=== PATIENT | female | born 1960 | race African-American/Black ===

== ENCOUNTER → 2016-06-18 | Outpatient (CLI) | payer OTHER ==
[~2016-06-18] MED LIST: B-COCAP9 PO; BAYETES; BIOTCAP PO; BLOOD GLUCOSE T1 TES; CALC1TAB53 PO; CETI10CA3 PO; COQ1200C3 PO; CYCL-36 PO; CYCL1TAB29 PO; ESTRTAB11 PO; FISH120014 PO; FISHCAP4 PO; FLUT1SPR22; FLUT1SPR9; GABA300C3 PO; GABA300C5 PO; GABA400C5 PO; GABA800T PO; GLUC1TAB24; GLUCTAB PO; GLUCTES27 XX; IBUP800T23 PO; KETO60IN6 IM; LIPI40TA PO; MEDR4PAK PO; MELO-1 PO; METF500T PO; METH125I2 IM; RED600TA PO; ZYRT10TA12 PO; [UNRECOGNIZED DRUG - CODE] PO
--- NOTE | 2016-06-18 14:04 | RADRPT ---
EXAM DATE/TIME: 06/18/2016 13:26 [facility] COMPARISON: No previous studies available for comparison. INDICATIONS : Left knee pain with no known injury. MEDICAL HISTORY : Osteoarthritis. SURGICAL HISTORY : Carpal tunnel syndrome. right elbow. ENCOUNTER: Initial ACUITY: >1 year PAIN SCORE: 8/10 LOCATION: Left knee FINDINGS: Four view examination of the left knee demonstrates moderate to severe osteoarthritis of the medial j oint. There is mild medial subluxation of the distal femur on the proximal tibia. Small knee joint ef fusion. CONCLUSION: 1. Severe osteoarthritis of the left knee with small joint effusion. No fracture. Roque Alston MD on June 18, 2016 at 14:00 Board Certified Radiologist. This report was verified electronically.
== END ==
LOC: HRAD 13:05
PROVIDERS: ATTEND Family Medicine
DX: M25.562 Pain in left knee (principal)
CPT/HCPCS: 73564

== ENCOUNTER 2016-08-11 13:31 | Emergency (ER) | payer OTHER ==
[~2016-08-11] VITALS: Ht 172.7 cm; Wt 135.7 kg
[~2016-08-11 13:31] MED LIST changes: -BAYETES; -BIOTCAP PO; -CETI10CA3 PO; -COQ1200C3 PO; -CYCL-36 PO; -ESTRTAB11 PO; -FLUT1SPR9; -GABA300C3 PO; -GABA300C5 PO; -GABA800T PO; -GLUC1TAB24; -GLUCTAB PO; -KETO60IN6 IM; -LIPI40TA PO; -MEDR4PAK PO; -METH125I2 IM; -RED600TA PO; -[UNRECOGNIZED DRUG - CODE] PO
[2016-08-11 13:33] VITALS: BP 168/77; PULSE 84; RESP 15; TEMP 98.2; O2SAT 96
--- NOTE | 2016-08-11 13:39 | PD ---
HPI . left leg acute on chronic pain and worsening edema Chief Complaint: Pain: Acute or Chronic Time Seen by Provider: 13:39 Travel History International Travel<30 days: No Contact w/Intl Traveler<30days: No Traveled to known affect area: No History of Present Illness HPI 55-year-old female with past medical history of hypertension, diabetes, chronic knee pain with osteoarthritis, hyperlipidemia and seasonal allergies here with complaints of worsening left leg pain and being sent from physical therapy to rule out a DVT. Patient reports that she was working with a new therapist who thought her leg was somewhat swollen. Patient said she then noticed that her leg was slightly more swollen than usual. She has been experiencing a little bit more pain. Physical therapy recommended DVT rule out before proceeding with any further sessions. At time of examination patient denies any chest pain , nausea, vomiting, shortness breath, or abdominal pain. PFSH Past Medical History ?: Not Social History Tobacco Use: No Allergies-Medications (Allergen,Severity, Reaction): Coded Allergies: No Known Allergies (Unverified , 08/11/16) Reported Meds & Prescriptions Reported Meds & Active Scripts Active Meloxicam 15 Mg Tab 15 Mg PO DAILY Flexeril (Cyclobenzaprine HCl) 10 Mg Tab 10 Mg PO TID Gabapentin 400 Mg Cap 400 Cap PO TID Metformin (Metformin HCl) 500 Mg Tab 500 Mg PO DAILY With a meal Reported Blood Glucose Test Strips 1 Niecy Niecy 1 Ea .ROUTE DIRECTED Allergy Nasal [place] 24 Ho (Fluticasone Propionate (Nasal)) 50 Mcg/Act Spr Fish Oil + D3 (Fish Oil-Cholecalciferol) 1,200-1,000 Mg-Unit Cap 1,200 Cap PO DAILY Super B-Complex (B-Complex W/Biotin & Folic Acid) 1 Cap 1 Cap PO Ibuprofen 800 Mg Tab 800 Mg PO TID Review of Systems General / Constitutional: No: Fever Eyes: No: Visual changes HENT: No: Headaches Cardiovascular: No: Chest Pain or Discomfort Respiratory: No: Shortness of Breath Gastrointestinal: No: Abdominal Pain Genitourinary: No: Dysuria Musculoskeletal: Positive: Pain (left leg pain ) Skin: No Rash Neurologic: No: Weakness Psychiatric: No: Depression Endocrine: No: Polydipsia Hematologic/Lymphatic: No: Easy Bruising Physical Exam Narrative GENERAL: AAO x 3, no acute distress, Well-nourished, well-developed patient. SKIN: Warm and dry. No visible rashes or bruising. HEAD: Normocephalic and atraumatic. EYES: No scleral icterus. No injection or drainage. ENT: No nasal drainage noted. Mucous membranes pink. Airway patent. NECK: Supple, trachea midline. No JVD. CARDIOVASCULAR: Regular rate and rhythm without murmurs, gallops, or rubs. RESPIRATORY: Breath sounds equal bilaterally. No accessory muscle use. No rhonchi or rales. GASTROINTESTINAL: Abdomen soft, non-tender, nondistended. EXTREMITIES: No cyanosis or edema. Pulses palpable. BACK: Nontender without obvious deformity. No CVA tenderness. PSYCH: AAO x 3, normal affect. Data Data Last Documented VS Vital Signs Date Time Temp Pulse Resp B/P Pulse Ox O2 Delivery O2 Flow Rate FiO2 08/11/16 13:33 98.2 84 15 168/77 96 Orders Us Leg Venous Doppler (08/11/16 ) MDM Medical Decision Making Medical Screen Exam Complete: Yes Emergency Medical Condition: Yes Medical Record Reviewed: Yes (patient of Dr. Little) Differential Diagnosis Acute on chronic leg pain, chronic lower extremity edema, DVT Narrative Course 55-year-old female with past medical history of hypertension, diabetes, chronic knee pain with osteoarthritis, hyperlipidemia and seasonal allergies here with complaints of worsening left leg pain and being sent from physical therapy to rule out a DVT. Patient reports that she was working with a new therapist who thought her leg was somewhat swollen. Patient said she then noticed that her leg was slightly more swollen than usual. She has been experiencing a little bit more pain. Physical therapy recommended DVT rule out before proceeding with any further sessions. At time of examination patient denies any chest pain , nausea, vomiting, shortness breath, or abdominal pain. Patient seen and examined. Case discussed with Dr. Gallegos. Recommend venous Doppler for left lower extremity to rule out DVT. US no DVT Patient advised to follow with Dr. Little in the community clinic Patient verbalized understanding of instructions, questions were answered, and thanked me for their care. I advised them if their condition worsens, please return to the nearest emergency room for further care. Diagnosis Primary Impression: Left leg pain Patient Instructions: General Instructions Additional Instructions: Please return to emergency department if your symptoms return or worsen. Follow up with your primary care provider. Take medications as prescribed. Med/Other Pt SpecificInfo: No Change to Meds Disposition: 01 DISCHARGE HOME Condition: Stable Pamella Wallace Aug 11, 2016 13:39
--- NOTE | 2016-08-11 14:46 | RADRPT ---
EXAM DATE/TIME: 08/11/2016 14:25 [facility] COMPARISON: No previous studies available for comparison. INDICATIONS : Left leg pain and swelling. MEDICAL HISTORY : Osteoarthritis. Diabetes. Chronic knee pain. Hyperlipidemia. SURGICAL HISTORY : Tonsillectomy. section. Tubal ligation. Carpal tunnel surgery. Right elbow surgery. ENCOUNTER: Initial ACUITY: 2 day PAIN SCORE: 6/10 LOCATION: Left leg. TECHNIQUE: Venous ultrasound of the leg was performed from the inguinal ligament to the proximal calf. Real-time, color Doppler and spectral tracing, compression and augmentation techniques were us ed. FINDINGS: There is normal compressibility of the deep venous system from the inguinal region to the proximal ca lf. No echogenic clot is seen in the lumen of the common femoral, femoral, popliteal, and posterior tibial veins. There is a normal response of the venous system to proximal and distal augmentation an d respiration. CONCLUSION: No deep venous thrombosis left leg. Mick Alexandre MD on August 11, 2016 at 14:44 Board Certified Radiologist. This report was verified electronically.
--- NOTE | 2016-08-11 14:51 | PD ---
Data Data Last Documented VS Vital Signs Date Time Temp Pulse Resp B/P Pulse Ox O2 Delivery O2 Flow Rate FiO2 08/11/16 13:33 98.2 84 15 168/77 96 Orders Us Leg Venous Doppler (08/11/16 ) MDM Supervised Visit with KIRSTEN: Yes Narrative Course The history, exam, and medical decision-making in the associated mid-level provider note were completed with my assistance. I reviewed and agree with the findings presented. I attest that I had a [id number] encounter with the patient on the same day, and personally performed and documented my assessment and findings in the medical record. *My assessment and Findings: 10 year-old woman with chronic pain in the left knee and left leg swelling or worsening swelling for the past week. Physical therapy referred her in for evaluation for possible DVT. Ultrasounds negative. Continue supportive treatment. Diagnosis Primary Impression: Left leg pain Disposition: 01 DISCHARGE HOME Condition: Stable Richard Gallegos MD Aug 11, 2016 14:51
[2016-08-13] MEDS ORDERED: MEDR4PAK PO (16:36)
[2016-10-01] MEDS ORDERED: BAYETES (14:38)
[2016-10-12] MEDS ORDERED: ESTRTAB11 PO (15:33)
[2016-10-12] MEDS ORDERED: KETO60IN6 IM (16:04)
[2016-10-12] MEDS ORDERED: METH125I2 IM (16:04)
[2016-10-28] MEDS ORDERED: LIPI40TA PO (14:22)
[2016-12-01] MEDS ORDERED: GLUC1TAB24 (14:46)
[2016-12-01] MEDS ORDERED: GABA800T PO (14:50)
[2016-12-01] MEDS ORDERED: CETI10CA3 PO (15:08)
== END 2016-08-11 15:13 | disposition home or self-care (01) ==
LOC: NEPC 13:31
DX: M79.605 Pain in left leg (principal); M25.562 Pain in left knee; M79.89 Other specified soft tissue disorders; E78.5 Hyperlipidemia, unspecified; I10 Essential (primary) hypertension; E11.9 Type 2 diabetes mellitus without complications; G89.29 Other chronic pain
CPT/HCPCS: 93971

== ENCOUNTER → 2016-10-27 | Outpatient (CLI) | payer OTHER ==
[~2016-10-27] MED LIST changes: +BAYETES; -CALC1TAB53 PO; +CETI10CA3 PO; +ESTRTAB11 PO; -FISH120014 PO; +GABA800T PO; +GLUC1TAB24; -GLUCTES27 XX; +LIPI40TA PO; +MEDR4PAK PO; -ZYRT10TA12 PO
[2016-10-27 10:53] LABS: AUTOMATED NEUTROPHIL # 3.3 TH/MM3 (1.8-7.7); BASOPHIL % 0.6 % (0.0-2.0); EOSINOPHIL # 0.2 TH/MM3 (0-0.4); EOSINOPHIL % 3.8 % (0.0-4.0); HEMATOCRIT 37.2 % (35.0-46.0); HEMO FLAGS DIFF FINAL; LYMPH % 41.2 % (9.0-44.0); LYMPHOCYTE # 2.7 TH/MM3 (1.0-4.8); MEAN CELL VOLUME 80.9 FL (80.0-100.0); MEAN CORPUSCULAR HEMOGLOBIN 27.2 PG (27.0-34.0); MEAN CORPUSCULAR HGB CONC 33.6 % (32.0-36.0); NEUT % 49.4 % (16.0-70.0); PLATELET COUNT 172 TH/MM3 (150-450); RED CELL DISTRIBUTION WIDTH 14.5 % (11.6-17.2); WHITE BLOOD COUNT 6.6 TH/MM3 (4.0-11.0)
[2016-10-27 11:14] LABS: ALKALINE PHOSPHATASE 115 U/L (45-117); ALT (GPT) 26 U/L (10-53); ANION GAP 7 MEQ/L (5-15); AST (GOT) 20 U/L (15-37); BICARBONATE 28.7 MEQ/L (21.0-32.0); BLOOD UREA NITROGEN 14 MG/DL (7-18); CHLORIDE 101 MEQ/L (98-107); GLOMERULAR FILTRATION RATE 67 ML/MIN (>89); GLUCOSE,FASTING 151 MG/DL (74-99); HDL CHOLESTEROL 43.7 MG/DL (40.0-60.0); LDL CHOLESTEROL 166 MG/DL (0-99); POTASSIUM 3.8 MEQ/L (3.5-5.1); SODIUM (NA) 137 MEQ/L (136-145); TOTAL BILIRUBIN ADULT 0.5 MG/DL (0.2-1.0)
[2016-10-27 12:20] LABS: HEMOGLOBIN A1a 1.4 %; HEMOGLOBIN A1b 2.1 %; HEMOGLOBIN Ao 82.5 %; HEMOGLOBIN LA1C 2.2 %
== END ==
LOC: CLAB 10:19
PROVIDERS: ATTEND Family Medicine
DX: M25.569 Pain in unspecified knee (principal); E78.5 Hyperlipidemia, unspecified; Z68.42 Body mass index [BMI] 45.0-49.9, adult
CPT/HCPCS: 36415; 80053; 80061; 83036; 84443; 85025

== ENCOUNTER → 2016-12-29 | Outpatient (CLI) | payer OTHER ==
[~2016-12-29] MED LIST changes: -B-COCAP9 PO; -ESTRTAB11 PO; -FLUT1SPR22; -GABA400C5 PO; -MEDR4PAK PO
[2016-12-29 15:41] LABS: HDL CHOLESTEROL 52.9 MG/DL (40.0-60.0)
== END ==
LOC: CLAB 14:38
PROVIDERS: ATTEND Family Medicine
DX: E78.5 Hyperlipidemia, unspecified (principal); Z68.42 Body mass index [BMI] 45.0-49.9, adult
CPT/HCPCS: 36415; 80061

== ENCOUNTER → 2016-12-31 | Outpatient (CLI) | payer OTHER ==
--- NOTE | 2016-12-31 14:42 | RADRPT ---
EXAM DATE/TIME: 12/31/2016 13:01 [facility] COMPARISON: No previous studies available for comparison. INDICATIONS : Abdominal pain and diahrrea for 2 weeks; evaluate for gastroenteritis. MEDICAL HISTORY : Diabetes. SURGICAL HISTORY : Tubal ligation. section. ENCOUNTER: Initial ACUITY: 2 weeks PAIN SCORE: 2/10 LOCATION: Bilateral abdomen. FINDINGS: Supine view of the abdomen was performed. The abdominal bowel gas pattern is normal. No abnormal ma sses, calcifications, or organomegaly is seen. Degenerative changes lower lumbar spine and both hips. CONCLUSION: Unremarkable abdomen. No obstruction. Mick Alexandre MD on December 31, 2016 at 14:40 Board Certified Radiologist. This report was verified electronically.
== END ==
LOC: HRAD 12:48
PROVIDERS: ATTEND Family Medicine
DX: K52.9 Noninfective gastroenteritis and colitis, unspecified (principal)
CPT/HCPCS: 74000

== ENCOUNTER → 2016-12-31 | Outpatient (CLI) | payer OTHER ==
[2016-12-31 13:54] LABS: ANION GAP 12 MEQ/L (5-15); AST (GOT) 24 U/L (15-37); BICARBONATE 23.7 MEQ/L (21.0-32.0); BLOOD UREA NITROGEN 17 MG/DL (7-18); CHLORIDE 105 MEQ/L (98-107); GLOMERULAR FILTRATION RATE 79 ML/MIN (>89); GLUCOSE,FASTING 108 MG/DL (74-99); POTASSIUM 3.7 MEQ/L (3.5-5.1); SODIUM (NA) 141 MEQ/L (136-145)
[2016-12-31 13:55] LABS: ALT (GPT) 30 U/L (10-53)
[2016-12-31 13:57] LABS: ALKALINE PHOSPHATASE 111 U/L (45-117); TOTAL BILIRUBIN ADULT 0.8 MG/DL (0.2-1.0)
== END ==
LOC: CLAB 13:16
PROVIDERS: ATTEND Family Medicine
DX: K52.9 Noninfective gastroenteritis and colitis, unspecified (principal)
CPT/HCPCS: 80053

== ENCOUNTER → 2017-01-01 | Outpatient (CLI) | payer OTHER | LOC: CLAB 12:32 | PROVIDERS: ATTEND Family Medicine | DX: K52.9 Noninfective gastroenteritis and colitis, unspecified (principal) | CPT/HCPCS: 87046 ==

== ENCOUNTER → 2017-01-26 | Outpatient (CLI) | payer OTHER ==
[~2017-01-26] MED LIST changes: +DICL1GEL7 TOPICAL; +KETO60IN6 IM; +LANS15CA PO; +METH125I2 IM; +TRIA40P I-ARTICULR
[2017-01-26 11:42] LABS: RHEUMATOID FACTOR TRIGGER LESS THAN 10.0 IU/ML (0.0-14.9)
== END ==
LOC: CLAB 10:28
PROVIDERS: ATTEND Family Medicine
DX: M79.643 Pain in unspecified hand (principal); E11.9 Type 2 diabetes mellitus without complications; M65.30 Trigger finger, unspecified finger
CPT/HCPCS: 36415; 84550; 86038; 86430

== ENCOUNTER → 2017-03-18 | Outpatient (CLI) | payer OTHER ==
[~2017-03-18] MED LIST changes: -FISHCAP4 PO; -KETO60IN6 IM; -MELO-1 PO; -METH125I2 IM
== END ==
LOC: HORT 16:44
PROVIDERS: ATTEND Family Medicine
DX: Z46.89 Encounter for fitting and adjustment of other specified devices (principal)

== ENCOUNTER → 2017-03-18 | Outpatient (CLI) | payer OTHER ==
--- NOTE | 2017-03-18 11:01 | RADRPT ---
EXAM DATE/TIME: 03/18/2017 10:36 [facility] COMPARISON: No previous studies available for comparison. INDICATIONS : Evaluate left hand for trigger finger, [id number] finger MEDICAL HISTORY : Diabetes mellitus type II. SURGICAL HISTORY : Tubal ligation. section ENCOUNTER: Initial ACUITY: 3 weeks PAIN SCORE: 10/10 LOCATION: Left Hand FINDINGS: Three view examination of the left hand demonstrates no soft tissue swelling, dislocation, or fractur e. The carpal bones appear intact. The interphalangeal and metacarpophalangeal joints are intact. Bony mineralization is normal. CONCLUSION: Unremarkable examination of the left hand. Albino Stapleton MD on March 18, 2017 at 10:58 Board Certified Radiologist. This report was verified electronically.
--- NOTE | 2017-03-18 11:31 | RADRPT ---
EXAM DATE/TIME: 03/18/2017 11:11 [facility] COMPARISON: No previous studies available for comparison. INDICATIONS : Patient fell pain in left entire wrist. MEDICAL HISTORY : Diabetes mellitus type II. SURGICAL HISTORY : Tubal ligation. ENCOUNTER: Initial ACUITY: 1 day PAIN SCORE: 10/10 LOCATION: Left Wrist FINDINGS: Three view examination of the left wrist demonstrates soft tissue swelling without dislocation, or fr acture. The carpal bones are in normal alignment. The joint spaces are maintained. Bony mineraliza tion is normal. CONCLUSION: No fracture. Mick Alexandre MD on March 18, 2017 at 11:29 Board Certified Radiologist. This report was verified electronically.
== END ==
LOC: HRAD 10:24
PROVIDERS: ATTEND Family Medicine
DX: M65.342 Trigger finger, left ring finger (principal)
CPT/HCPCS: 73110; 73130